=== PATIENT | male | born 1970 | race Caucasian/White ===

== ENCOUNTER 2024-08-01 14:25 | Inpatient (IN) | payer OTHER ==
[2024-08-01 15:27] VITALS: BMI 27.6
[2024-08-01] MEDS ORDERED: MAGNESIUM HYDROX 2400MG/30ML ORAL SUSPENSION 30 ML CUP PO PRN (17:22)
[2024-08-01] MEDS ORDERED: LOPERAMIDE HCL 2 MG CAPSULE PO PRN (17:22)
[2024-08-01] MEDS ORDERED: BENZONATATE 200 MG CAPSULE PO PRN (17:22)
[2024-08-01] MEDS ORDERED: POLYETHYLENE GLYCOL (HEALTHYLAX) 3350 17 GM PACKET PO PRN (17:22)
[2024-08-01] MEDS ORDERED: IBUPROFEN 400 MG TABLET (FP) PO PRN (17:22)
[2024-08-01] MEDS ORDERED: guaiFENesin 600 MG TABLET.ER (FP) PO PRN (17:22)
[2024-08-01] MEDS ORDERED: NICOTINE POLACRILEX 2 MG GUM BUC PRN (17:22)
[2024-08-01] MEDS ORDERED: NICOTINE POLACRILEX 2 MG LOZENGE BC PRN (17:22)
[2024-08-01] MEDS ORDERED: BENZOCAINE/MENTHOL (CHLORASEPTIC ) LOZENGE MM PRN (17:22)
[2024-08-01] MEDS ORDERED: MAG HYDROX/AL HYDROX/SIMETH 30 ML UNIT-DOSE CUP PO PRN (17:22)
[2024-08-01] MEDS ORDERED: TUBERCULIN PPD 5 TU/0.1ML VIAL ID ONE (20:33)
[2024-08-01] MEDS: TUBERCULIN PPD 5 TU/0.1ML SYRINGE (IN PATIENT USE ONLY) ID ONE (21:55)
[2024-08-01] MEDS: MELATONIN 5 MG TABLETS PO SCH (22:04)
[2024-08-01] MEDS: THIAMINE 100 MG TABLET PO SCH (22:05)
[2024-08-02] MEDS: ACETAMINOPHEN 325 MG TABLET (FP) PO PRN (00:09)
[2024-08-02] MEDS: IBUPROFEN 600 MG TABLET (FP) PO PRN (05:44)
[2024-08-02] MEDS: INSULIN ASPART SLIDING SCALE (NOVOLOG) 1 VIAL SQ SCH (06:04)
[2024-08-02] MEDS: PRENATAL VITAMINS W/ FOLIC ACID TABLET (FP) PO SCH (10:23)
[2024-08-02 11:54] LABS: HEMATOCRIT 42.2 % (35.4-49); HEMOGLOBIN 14.1 GM/dL (11.7-16.9); MCH 31.9 pg (25.7-33.7); MCHC 33.5 g/dl (32.0-35.9); MEAN PLT VOLUME 9.9 fl (7.5-11.1); PLATELET COUNT 187 10^3/uL (134-434); RBC 4.44 M/mm3 (4.00-5.60); RDW 13.2 % (11.9-15.9); WHITE BLOOD COUNT 7.3 K/mm3 (4.0-10.0)
[2024-08-02 12:01] LABS: PH,URINE 7.5 (5.0-8.0); URINE APPEARANCE CLEAR; URINE BILIRUBIN NEGATIVE (NEGATIVE); URINE COLOR YELLOW; URINE GLUCOSE (UA) NEGATIVE (NEGATIVE); URINE KETONE NEGATIVE (NEGATIVE); URINE LEUK ESTERASE NEGATIVE (NEGATIVE); URINE NITRITE NEGATIVE (NEGATIVE); URINE PROTEIN NEGATIVE (NEGATIVE)
[2024-08-02 12:03] LABS: POTASSIUM 4.3 mmol/L (3.5-5.1)
[2024-08-02 12:09] LABS: ALBUMIN 2.9 g/dl (3.4-5.0); BLOOD UREA NITROGEN 9.4 mg/dL (7-18)
[2024-08-02 12:12] LABS: CREATININE 0.9 mg/dL (0.55-1.3)
[2024-08-02 12:13] LABS: CALCIUM 9.3 mg/dL (8.5-10.1)
[2024-08-02 12:18] LABS: BILIRUBIN,TOTAL 0.3 mg/dL (0.2-1); TOT PROT 5.4 g/dl (6.4-8.2)
[2024-08-02] MEDS ORDERED: ALBUTEROL SO4 HFA INHALER IH PRN (13:40)
[2024-08-02] MEDS: LISINOPRIL 10 MG TABLET PO SCH (14:56)
[2024-08-02] MEDS: ASPIRIN COATED 81 MG TABLET.EC PO SCH (14:56)
[2024-08-02] MEDS: PANTOPRAZOLE 40 MG TABLET PO SCH (14:56)
[2024-08-02] MEDS: HYDROCHLOROTHIAZIDE 12.5 MG CAPSULE (FP) PO SCH (14:56)
[2024-08-02] MEDS: CARVEDILOL 25 MG TABLET (FP) PO ONE (14:57)
[2024-08-02] MEDS: EZETIMIBE 10 MG TABLET (FP) PO SCH (15:58)
[2024-08-02] MEDS: RIVAROXABAN 20 MG TABLET PO SCH (18:47)
[2024-08-02] MEDS ORDERED: ATORVASTATIN CA 40 MG TABLET (FP) ONE (20:31)
[2024-08-02] MEDS: ATORVASTATIN CA 80 MG TABLET (FP) PO SCH (21:56)
[2024-08-02] MEDS: BUDESONIDE/FORMETEROL FUMARATE 160/4.5 mcg INHALER IH SCH (21:56)
[2024-08-03 06:51] VITALS: TEMP 97.3
[2024-08-03 10:23] VITALS: BP 146/101; PULSE 85; RESP 18
[2024-08-03] MEDS ORDERED: IBUPROFEN 400 MG TABLET (FP) PO PRN (13:20)
[2024-08-03] MEDS ORDERED: CARVEDILOL 12.5 MG TABLET (FP) PO SCH (22:00)
== END 2024-08-03 23:18 | disposition short-term general hospital (02) | DRG 772 ==
LOC: YASAS 14:25 → Y3W 19:00
PROVIDERS: ADMIT Allergy & Immunology; ATTEND Psychiatry & Neurology Pain Medicine
PROC: HZ42ZZZ Group Counseling for Substance Abuse Treatment, Cognitive-Behavioral (ICD-10-PCS; principal; 2024-08-01)
DX: F14.20 Cocaine dependence, uncomplicated (principal); F12.20 Cannabis dependence, uncomplicated; F17.210 Nicotine dependence, cigarettes, uncomplicated; E78.5 Hyperlipidemia, unspecified; I25.10 Atherosclerotic heart disease of native coronary artery without angina pectoris; I10 Essential (primary) hypertension; Z95.1 Presence of aortocoronary bypass graft; E11.9 Type 2 diabetes mellitus without complications; Z79.84 Long term (current) use of oral hypoglycemic drugs; J45.909 Unspecified asthma, uncomplicated; K21.9 Gastro-esophageal reflux disease without esophagitis; M51.26 Other intervertebral disc displacement, lumbar region; R20.2 Paresthesia of skin; Z79.01 Long term (current) use of anticoagulants
CPT/HCPCS: 36415; 80053; 80305; 80307; 81003; 82962; 85027; 86780; 87811; 93005; 93010

== ENCOUNTER 2024-08-03 15:50 | Inpatient (IN) | payer OTHER ==
[2024-08-03 16:10] VITALS: BMI 27.8
[2024-08-03 16:44] LABS: BASO % 0.6 % (0-2.0); EOS % 2.8 % (0-4.5); HEMATOCRIT 47.4 % (35.4-49); HEMOGLOBIN 16.2 GM/dL (11.7-16.9); LYMPH % 17.5 % (8-40); MCH 31.7 pg (25.7-33.7); MCHC 34.1 g/dl (32.0-35.9); MEAN CELL VOLUME 92.9 fl (80-96); MEAN PLT VOLUME 9.8 fl (7.5-11.1); MONO % 6.3 % (3.8-10.2); NEUT % 72.8 % (42.8-82.8); PLATELET COUNT 233 10^3/uL (134-434); RBC 5.11 M/mm3 (4.00-5.60); RDW 13.5 % (11.9-15.9); WHITE BLOOD COUNT 9.1 K/mm3 (4.0-10.0)
[2024-08-03 16:53] LABS: POTASSIUM 4.3 mmol/L (3.5-5.1)
[2024-08-03 16:55] LABS: BLOOD UREA NITROGEN 9.5 mg/dL (7-18); CALCIUM 10.2 mg/dL (8.5-10.1)
[2024-08-03 16:59] LABS: CREATININE 0.9 mg/dL (0.55-1.3); INR 0.96 (0.83-1.09); PROTHROMBIN TIME (PATIENT) 10.9 SEC (9.7-13.0)
[2024-08-03] MEDS ORDERED: ACETAMINOPHEN INJECTION 100 ML ONE (17:11)
[2024-08-03] MEDS: ACETAMINOPHEN 1000 MG/100 ML BAG IVPB ONE (17:16)
[2024-08-03 17:51] LABS: HIV INTERPRETATION NEGATIVE (NEGATIVE)
[2024-08-03] MEDS: SODIUM CHLORIDE 0.9% 500 ML INFUS.BAG IV ONE (18:20)
[2024-08-03] MEDS ORDERED: PREGABALIN 50 MG CAPSULE ONE (21:58)
[2024-08-03] MEDS ORDERED: INSULIN ASPART SLIDING SCALE (NOVOLOG) 1 VIAL SQ ONE (21:58)
[2024-08-03] MEDS ORDERED: ACETAMINOPHEN 325 MG TABLET (FP) ONE (21:58)
[2024-08-03] MEDS: PREGABALIN 50 MG CAPSULE PO ONE (22:16)
[2024-08-03] MEDS: ACETAMINOPHEN 325 MG TABLET (FP) PO SCH (22:16)
[2024-08-03] MEDS: INSULIN ASPART SLIDING SCALE (NOVOLOG) 1 VIAL SQ SCH (22:16)
[2024-08-03] MEDS ORDERED: diazePAM 5 MG TABLET ONE (22:58)
[2024-08-03] MEDS ORDERED: ALBUTEROL SO4 0.083% IH SOL 2.5 MG/3 ML VIAL.NEB. NEB PRN (23:15)
[2024-08-04] MEDS: diazePAM 5 MG TABLET PO PRN (00:53)
[2024-08-04] MEDS: PANTOPRAZOLE 40 MG TABLET PO SCH (06:19)
[2024-08-04 10:53] LABS: BASO % 0.6 % (0-2.0); EOS % 2.8 % (0-4.5); MCH 32.1 pg (25.7-33.7); MCHC 34.8 g/dl (32.0-35.9); MEAN CELL VOLUME 92.1 fl (80-96); MEAN PLT VOLUME 9.7 fl (7.5-11.1); MONO % 6.5 % (3.8-10.2); NEUT % 71.1 % (42.8-82.8); PLATELET COUNT 230 10^3/uL (134-434); RBC 4.99 M/mm3 (4.00-5.60); RDW 13.4 % (11.9-15.9); WHITE BLOOD COUNT 9.6 K/mm3 (4.0-10.0)
[2024-08-04 11:05] LABS: POTASSIUM 4.1 mmol/L (3.5-5.1)
[2024-08-04 11:10] LABS: BLOOD UREA NITROGEN 12.3 mg/dL (7-18)
[2024-08-04 11:11] LABS: ALBUMIN 3.4 g/dl (3.4-5.0); CALCIUM 9.7 mg/dL (8.5-10.1)
[2024-08-04 11:14] LABS: CREATININE 0.8 mg/dL (0.55-1.3)
[2024-08-04 11:15] LABS: PHOSPHOROUS 4.8 mg/dL (2.5-4.9)
[2024-08-04 11:16] LABS: BILIRUBIN,TOTAL 0.4 mg/dL (0.2-1); TOT PROT 6.3 g/dl (6.4-8.2)
[2024-08-04] MEDS: CARVEDILOL 12.5 MG TABLET (FP) PO SCH (11:20)
[2024-08-04] MEDS: LISINOPRIL 10 MG TABLET PO SCH (11:21)
[2024-08-04] MEDS: ASPIRIN 81 MG CHEWABLE TABLETS PO SCH (11:21)
[2024-08-04] MEDS: PREGABALIN 50 MG CAPSULE PO SCH (11:21)
[2024-08-04] MEDS: HYDROCHLOROTHIAZIDE 12.5 MG CAPSULE (FP) PO SCH (11:21)
[2024-08-04] MEDS: EZETIMIBE 10 MG TABLET (FP) PO SCH (11:21)
[2024-08-04] MEDS: BUDESONIDE/FORMETEROL FUMARATE 160/4.5 mcg INHALER IH SCH (11:22)
[2024-08-04] MEDS ORDERED: INSULIN ASPART SLIDING SCALE (NOVOLOG) 1 VIAL SQ ONE (11:52)
[2024-08-04] MEDS ORDERED: ACETAMINOPHEN 500 MG TABLET (FP) PO SCH (15:25)
[2024-08-04] MEDS: ACETAMINOPHEN 500 MG TABLET (FP) PO SCH (15:43)
[2024-08-04] MEDS: THIAMINE 100 MG TABLET PO SCH (21:19)
[2024-08-04] MEDS: ATORVASTATIN CA 80 MG TABLET (FP) PO SCH (21:19)
[2024-08-04] MEDS: GABAPENTIN 400 MG CAPSULE PO SCH (21:20)
[2024-08-05 09:55] LABS: BASO % 0.4 % (0-2.0); EOS % 3.1 % (0-4.5); HEMATOCRIT 48.9 % (35.4-49); HEMOGLOBIN 16.7 GM/dL (11.7-16.9); LYMPH % 22.6 % (8-40); MCH 31.8 pg (25.7-33.7); MCHC 34.2 g/dl (32.0-35.9); MEAN CELL VOLUME 92.9 fl (80-96); MEAN PLT VOLUME 9.9 fl (7.5-11.1); MONO % 6.3 % (3.8-10.2); NEUT % 67.6 % (42.8-82.8); PLATELET COUNT 241 10^3/uL (134-434); RBC 5.26 M/mm3 (4.00-5.60); RDW 13.6 % (11.9-15.9); WHITE BLOOD COUNT 9.3 K/mm3 (4.0-10.0)
[2024-08-05 10:18] LABS: POTASSIUM 4.4 mmol/L (3.5-5.1)
[2024-08-05 10:23] LABS: ALBUMIN 3.5 g/dl (3.4-5.0); BLOOD UREA NITROGEN 18.8 mg/dL (7-18); CALCIUM 9.9 mg/dL (8.5-10.1)
[2024-08-05 10:26] LABS: CREATININE 0.8 mg/dL (0.55-1.3)
[2024-08-05 10:28] LABS: BILIRUBIN,TOTAL 0.4 mg/dL (0.2-1)
[2024-08-05 10:29] LABS: TOT PROT 6.5 g/dl (6.4-8.2)
[2024-08-05] MEDS: ENOXAPARIN NA (PORCINE) 40 MG/0.4 ML DISP.SYRIN SQ SCH (10:36)
[2024-08-05] MEDS: LORazepam 2 MG/ML SDV VIAL IVPUSH ONE ×2 (13:35→15:38)
[2024-08-05] MEDS: LIDOCAINE 5% TOPICAL PATCH TP SCH (18:09)
[2024-08-05] MEDS: LIDOCAINE PATCH REMOVAL MC SCH (21:24)
[2024-08-06] MEDS ORDERED: ACETAMINOPHEN 1000 MG/100 ML BAG IVPB PRN (09:20)
[2024-08-06] MEDS: LORazepam 2 MG/ML SDV VIAL IVPUSH ONE ×2 (09:41→18:15)
[2024-08-06] MEDS: ACETAMINOPHEN 1000 MG/100 ML BAG IVPB PRN (09:45)
[2024-08-06] MEDS: METHOCARBAMOL 500 MG TABLET PO ONE (10:16)
[2024-08-06 11:14] LABS: BASO % 0.7 % (0-2.0); EOS % 2.6 % (0-4.5); HEMATOCRIT 47.6 % (35.4-49); HEMOGLOBIN 16.2 GM/dL (11.7-16.9); LYMPH % 20.1 % (8-40); MCH 31.4 pg (25.7-33.7); MEAN CELL VOLUME 92.4 fl (80-96); MEAN PLT VOLUME 9.9 fl (7.5-11.1); NEUT % 70.6 % (42.8-82.8); PLATELET COUNT 222 10^3/uL (134-434); RBC 5.15 M/mm3 (4.00-5.60); RDW 13.3 % (11.9-15.9); WHITE BLOOD COUNT 9.2 K/mm3 (4.0-10.0)
[2024-08-06 11:31] LABS: POTASSIUM 4.4 mmol/L (3.5-5.1)
[2024-08-06 11:36] LABS: CALCIUM 9.7 mg/dL (8.5-10.1)
[2024-08-06 11:37] LABS: ALBUMIN 3.4 g/dl (3.4-5.0)
[2024-08-06 11:40] LABS: BLOOD UREA NITROGEN 19.2 mg/dL (7-18); CREATININE 0.9 mg/dL (0.55-1.3); MAGNESIUM 2.1 mg/dL (1.8-2.4)
[2024-08-06 11:41] LABS: BILIRUBIN,TOTAL 0.5 mg/dL (0.2-1); TOT PROT 6.4 g/dl (6.4-8.2)
[2024-08-06] MEDS: METHOCARBAMOL 500 MG TABLET PO SCH (16:44)
[2024-08-06] MEDS ORDERED: INSULIN ASPART SLIDING SCALE (NOVOLOG) 1 VIAL SQ ONE (19:59)
[2024-08-06] MEDS: INSULIN (LEVEMIR) 100 UNITS/ML UNITS SQ SCH (21:55)
[2024-08-07 09:06] LABS: BASO % 0.7 % (0-2.0); EOS % 3.1 % (0-4.5); HEMATOCRIT 44.5 % (35.4-49); HEMOGLOBIN 15.4 GM/dL (11.7-16.9); INR 0.96 (0.83-1.09); LYMPH % 23.3 % (8-40); MCH 32.1 pg (25.7-33.7); MCHC 34.5 g/dl (32.0-35.9); MEAN CELL VOLUME 92.9 fl (80-96); MEAN PLT VOLUME 10.1 fl (7.5-11.1); MONO % 8.1 % (3.8-10.2); NEUT % 64.8 % (42.8-82.8); PLATELET COUNT 216 10^3/uL (134-434); PROTHROMBIN TIME (PATIENT) 11.1 SEC (9.7-13.0); RBC 4.79 M/mm3 (4.00-5.60); RDW 13.4 % (11.9-15.9); WHITE BLOOD COUNT 8.3 K/mm3 (4.0-10.0)
[2024-08-07 09:23] LABS: POTASSIUM 4.6 mmol/L (3.5-5.1)
[2024-08-07 09:30] LABS: ALBUMIN 3.3 g/dl (3.4-5.0); BLOOD UREA NITROGEN 23.7 mg/dL (7-18)
[2024-08-07 09:32] LABS: BILIRUBIN,TOTAL 0.4 mg/dL (0.2-1)
[2024-08-07 09:33] LABS: TOT PROT 6.4 g/dl (6.4-8.2)
[2024-08-07 09:34] LABS: CALCIUM 9.3 mg/dL (8.5-10.1); MAGNESIUM 2.2 mg/dL (1.8-2.4)
[2024-08-08] MEDS: METHYL SALICYLATE/MENTHOL 30 GM TUBE TP PRN (03:44)
[2024-08-08] MEDS: MELATONIN 5 MG TABLETS PO PRN (03:44)
[2024-08-08 09:50] LABS: BASO % 0.9 % (0-2.0); EOS % 3.6 % (0-4.5); HEMATOCRIT 42.9 % (35.4-49); HEMOGLOBIN 14.9 GM/dL (11.7-16.9); LYMPH % 26.3 % (8-40); MCH 32.3 pg (25.7-33.7); MCHC 34.7 g/dl (32.0-35.9); MEAN CELL VOLUME 93.1 fl (80-96); MEAN PLT VOLUME 10.1 fl (7.5-11.1); MONO % 8.7 % (3.8-10.2); NEUT % 60.5 % (42.8-82.8); PLATELET COUNT 209 10^3/uL (134-434); WHITE BLOOD COUNT 7.8 K/mm3 (4.0-10.0)
[2024-08-08 10:12] LABS: POTASSIUM 4.4 mmol/L (3.5-5.1)
[2024-08-08 10:14] LABS: CALCIUM 9.4 mg/dL (8.5-10.1)
[2024-08-08 10:16] LABS: ALBUMIN 3.4 g/dl (3.4-5.0); BLOOD UREA NITROGEN 20.8 mg/dL (7-18); MAGNESIUM 2.2 mg/dL (1.8-2.4)
[2024-08-08 10:18] LABS: CREATININE 1.1 mg/dL (0.55-1.3)
[2024-08-08 10:19] LABS: BILIRUBIN,TOTAL 0.4 mg/dL (0.2-1); TOT PROT 6.2 g/dl (6.4-8.2)
[2024-08-08] MEDS ORDERED: INSULIN ASPART SLIDING SCALE (NOVOLOG) 1 VIAL SQ ONE (11:54)
[2024-08-09] MEDS: ACETAMINOPHEN 500 MG TABLET (FP) PO ONE (04:30)
[2024-08-09] MEDS: ACETAMINOPHEN 1000 MG/100 ML BAG IVPB ONE (04:30)
[2024-08-09] MEDS: LORazepam 2 MG/ML SDV VIAL IVPUSH ONE ×2 (04:45→12:27)
[2024-08-09] MEDS: LORazepam 1 MG TABLET PO ONE ×3 (04:46→08:45)
[2024-08-09 06:59] VITALS: PULSE 85
[2024-08-09] MEDS: LORazepam 2 MG/ML SDV VIAL IM ONE (09:18)
[2024-08-09] MEDS: ACETAMINOPHEN 500 MG TABLET (FP) PO PRN (12:05)
[2024-08-09] MEDS: ACETAMINOPHEN 500 MG TABLET (FP) PO SCH (12:48)
[2024-08-09] MEDS: GABAPENTIN 400 MG CAPSULE PO SCH (14:54)
[2024-08-09] MEDS: METHOCARBAMOL 500 MG TABLET PO SCH (14:55)
[2024-08-09 15:07] VITALS: BP 113/71; RESP 18; TEMP 97.7
== END 2024-08-09 17:10 | disposition other institution (70) | DRG 347 ==
LOC: JER 15:50 → JERBED 21:20 → INTOOBSV 21:20 → J8W 08-04 00:31 → OBSVTOIN 08-06 12:26
PROVIDERS: ADMIT Internal Medicine; ATTEND Nurse Practitioner Acute Care
DX: M43.17 Spondylolisthesis, lumbosacral region (principal); F14.20 Cocaine dependence, uncomplicated; E11.40 Type 2 diabetes mellitus with diabetic neuropathy, unspecified; I10 Essential (primary) hypertension; E78.5 Hyperlipidemia, unspecified; I25.10 Atherosclerotic heart disease of native coronary artery without angina pectoris; I25.2 Old myocardial infarction; F32.A Depression, unspecified; F40.240 Claustrophobia; Z79.84 Long term (current) use of oral hypoglycemic drugs; F17.200 Nicotine dependence, unspecified, uncomplicated
CPT/HCPCS: 36415; 70450-TC; 70496-TC; 72131-TC; 72146-TC; 72148-TC; 80048; 80053; 82962; 83036; 83735; 84100; 85025; 85610; 86803; 86850; 86900; 86901; 87389; 93005; 93010; 97116-GP; 97161-GP; 99285-25; G0378; J0131; Q9967

== ENCOUNTER 2024-08-26 11:00 | Inpatient (IN) | payer OTHER ==
[2024-08-26 11:38] VITALS: BMI 27.1
[2024-08-26] MEDS ORDERED: IBUPROFEN 400 MG TABLET (FP) PO PRN (17:28)
[2024-08-26] MEDS ORDERED: POLYETHYLENE GLYCOL (HEALTHYLAX) 3350 17 GM PACKET PO PRN (17:28)
[2024-08-26] MEDS ORDERED: NALOXONE (NARCAN) HCL 4 MG/0.1 ML SPRAY NS PRN (17:28)
[2024-08-26] MEDS ORDERED: BENZONATATE 200 MG CAPSULE PO PRN (17:28)
[2024-08-26] MEDS ORDERED: guaiFENesin 600 MG TABLET.ER (FP) PO PRN (17:28)
[2024-08-26] MEDS ORDERED: ONDANSETRON *ODT* 4 MG TABLET SL PRN (17:28)
[2024-08-26] MEDS ORDERED: NALOXONE (NYS OPIOID OVERDOSE PROGRAM) 4 MG/0.1 ML SPRAY NS PRN (17:28)
[2024-08-26] MEDS ORDERED: BISMUTH SUBSALICYLATE 524 MG/30 ML PO PRN (17:28)
[2024-08-26] MEDS ORDERED: DICYCLOMINE HCL 10 MG CAPSULE PO PRN (17:28)
[2024-08-26] MEDS ORDERED: MAG HYDROX/AL HYDROX/SIMETH 30 ML UNIT-DOSE CUP PO PRN (17:28)
[2024-08-26] MEDS ORDERED: ACETAMINOPHEN 325 MG TABLET (FP) PO PRN (17:28)
[2024-08-26] MEDS ORDERED: MAGNESIUM HYDROX 2400MG/30ML ORAL SUSPENSION 30 ML CUP PO PRN (17:28)
[2024-08-26] MEDS ORDERED: BENZOCAINE/MENTHOL (CHLORASEPTIC ) LOZENGE MM PRN (17:28)
[2024-08-26] MEDS ORDERED: chlordiazePOXIDE HCL 25 MG CAPSULE ONE (18:01)
[2024-08-26] MEDS: chlordiazePOXIDE HCL 25 MG CAPSULE PO PRN (18:04)
[2024-08-26] MEDS: GABAPENTIN 400 MG CAPSULE PO SCH (22:31)
[2024-08-26] MEDS: ATORVASTATIN CA 80 MG TABLET (FP) PO SCH (22:31)
[2024-08-26] MEDS: THIAMINE 100 MG TABLET PO SCH (22:31)
[2024-08-26] MEDS: chlordiazePOXIDE HCL 25 MG CAPSULE PO SCH (22:31)
[2024-08-26] MEDS: CARVEDILOL 6.25 MG TABLET (FP) PO SCH (22:31)
[2024-08-26] MEDS: MELATONIN 5 MG TABLETS PO SCH (22:32)
[2024-08-26] MEDS: BUDESONIDE/FORMETEROL FUMARATE 160/4.5 mcg INHALER IH SCH (22:34)
[2024-08-26] MEDS: INSULIN (LEVEMIR) 100 UNITS/ML UNITS SQ SCH (22:34)
[2024-08-27] MEDS ORDERED: ALBUTEROL SO4 HFA INHALER IH PRN (10:03)
[2024-08-27] MEDS: LISINOPRIL 10 MG TABLET PO SCH (10:31)
[2024-08-27] MEDS: PRENATAL VITAMINS W/ FOLIC ACID TABLET (FP) PO SCH (10:31)
[2024-08-27] MEDS: EZETIMIBE 10 MG TABLET (FP) PO SCH (10:31)
[2024-08-27] MEDS: NICOTINE 21 MG/24 HOURS TOPICAL PATCH TD SCH (10:31)
[2024-08-27] MEDS: ASPIRIN 81 MG CHEWABLE TABLETS PO SCH (10:31)
[2024-08-27] MEDS: HYDROCHLOROTHIAZIDE 12.5 MG CAPSULE (FP) PO SCH (10:31)
[2024-08-27] MEDS: IBUPROFEN 600 MG TABLET (FP) PO PRN (10:35)
[2024-08-27] MEDS: PANTOPRAZOLE 40 MG TABLET PO SCH (10:36)
[2024-08-27] MEDS: METHYL SALICYLATE/MENTHOL 30 GM TUBE TP PRN (10:37)
[2024-08-27 11:28] LABS: HEMATOCRIT 46.2 % (35.4-49); HEMOGLOBIN 15.5 GM/dL (11.7-16.9); MCH 31.8 pg (25.7-33.7); MCHC 33.5 g/dl (32.0-35.9); MEAN PLT VOLUME 10.4 fl (7.5-11.1); PLATELET COUNT 220 10^3/uL (134-434); RBC 4.86 M/mm3 (4.00-5.60); RDW 13.2 % (11.9-15.9); WHITE BLOOD COUNT 7.6 K/mm3 (4.0-10.0)
[2024-08-27 11:58] LABS: CHLORIDE 108 mmol/L (98-107); POTASSIUM 4.2 mmol/L (3.5-5.1); SODIUM 139 mmol/L (136-145)
[2024-08-27 12:04] LABS: ALBUMIN 3.1 g/dl (3.4-5.0); GLUCOSE,RANDOM 141 mg/dL (74-106)
[2024-08-27 12:05] LABS: ANION GAP 2 mmol/L (4-13); BLOOD UREA NITROGEN 10.5 mg/dL (7-18); CALCIUM 9.1 mg/dL (8.5-10.1); CO2 29 mmol/L (21-32); CREATININE 0.7 mg/dL (0.55-1.3); SGOT/AST 6 U/L (15-37); SGPT/ALT 19 U/L (13-61)
[2024-08-27 12:06] LABS: BILIRUBIN,TOTAL 0.6 mg/dL (0.2-1)
[2024-08-27 12:07] LABS: TOT PROT 6.2 g/dl (6.4-8.2)
[2024-08-27 12:08] LABS: ALK PHOS 118 U/L (45-117)
[2024-08-28] MEDS: chlordiazePOXIDE HCL 25 MG CAPSULE PO SCH (05:47)
[2024-08-28] MEDS: METHOCARBAMOL 500 MG TABLET PO PRN (22:35)
[2024-08-28] MEDS: INSULIN ASPART SLIDING SCALE (NOVOLOG) 1 VIAL SQ SCH (23:07)
[2024-08-29] MEDS ORDERED: chlordiazePOXIDE HCL 10 MG CAPSULE PO PRN
[2024-08-29] MEDS: chlordiazePOXIDE HCL 10 MG CAPSULE PO SCH (06:00)
[2024-08-29 06:09] LABS: COCAINE QUALITATIVE URINE Positive ng/mL (Cutoff=300); MARIJUANA QL URINE CANNABINOID Negative ng/mL (Cutoff=50); METHADONE,QUALITATIVE URINE Negative ng/mL (Cutoff=300); OPIATES QL URINE Negative ng/mL (Cutoff=300); PHENCYCLIDINE,QUAL URINE Negative ng/mL (Cutoff=25); PROPOXYPHENE QL URINE Negative ng/mL (Cutoff=300); URINE AMPHETAMINES Negative ng/mL (Cutoff=1000)
[2024-08-30] MEDS: hydrOXYzine PAMOATE 25 MG CAPSULE (FP) PO PRN (02:12)
[2024-08-30] MEDS: chlordiazePOXIDE HCL 10 MG CAPSULE PO SCH (05:55)
[2024-08-30] MEDS ORDERED: INSULIN ASPART SLIDING SCALE (NOVOLOG) 1 VIAL SQ ONE (13:28)
[2024-08-30] MEDS: INSULIN (LEVEMIR) 100 UNITS/ML UNITS SQ SCH (23:00)
[2024-08-31] MEDS: chlordiazePOXIDE HCL 10 MG CAPSULE PO ONE (05:30)
[2024-08-31] MEDS: LOPERAMIDE HCL 2 MG CAPSULE PO PRN (06:15)
[2024-08-31 06:32] VITALS: BP 131/85; PULSE 87; RESP 17; TEMP 97.6
== END 2024-08-31 09:10 | disposition other institution (70) | DRG 774 ==
LOC: YASAS 11:00 → Y3N 16:58
PROVIDERS: ADMIT Allergy & Immunology; ATTEND Surgery
PROC: HZ2ZZZZ Detoxification Services for Substance Abuse Treatment (ICD-10-PCS; principal; 2024-08-26)
DX: F10.230 Alcohol dependence with withdrawal, uncomplicated (principal); F14.20 Cocaine dependence, uncomplicated; F12.20 Cannabis dependence, uncomplicated; F17.210 Nicotine dependence, cigarettes, uncomplicated; F41.9 Anxiety disorder, unspecified; F32.A Depression, unspecified; F43.10 Post-traumatic stress disorder, unspecified; I25.10 Atherosclerotic heart disease of native coronary artery without angina pectoris; I10 Essential (primary) hypertension; J45.20 Mild intermittent asthma, uncomplicated; K21.9 Gastro-esophageal reflux disease without esophagitis; E78.2 Mixed hyperlipidemia; E11.42 Type 2 diabetes mellitus with diabetic polyneuropathy; Z79.4 Long term (current) use of insulin; Z79.84 Long term (current) use of oral hypoglycemic drugs; M54.50 Low back pain, unspecified; G89.29 Other chronic pain
CPT/HCPCS: 36415; 80053; 80305; 80307; 82140; 82962; 83036; 85027; 86780; 93005; 93010